=== PATIENT | male | born 1975 | race Caucasian/White ===

== ENCOUNTER → 2017-07-29 10:00 | Outpatient (POV) | payer BC, SELFPAY ==
[2017-07-29 10:36] VITALS: BP 148/84; PULSE 95; RESP 18; TEMP 37.3; O2SAT 99; BMI 28.0
--- NOTE | 2017-07-29 10:58 | P.CONS_ITS ---
[facility] Pain Management SOAP Note Subjective:: This patient is a pleasant 41-year-old white male who we are treating for low back pain with lumbar spondylosis. He has previously had medial branch blocks and received 80% relief from these previous medial branch blocks. This was done several months ago. His pain is now returned. We are seeking approval for repeat medial branch blocks on the left side at L3-L4, L4-L5 and L5-S1. These were denied by his insurance wrongly saying that he only got 75% relief. Patient did get 80% relief so we are appealing this decision. Objective:: Alert and oriented ?3 in no acute distress. Increased pain with extension. Tenderness over lower lumbar spine on the left side. Motor strength of the lower extremities is 5/5. There is no gross sensory deficit. 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 His pain is returned only on the left side. We will seek approval for left-sided facet joint injection/medial branch blocks at L3-L4, L4-5 and L5-S1.
== END ==
PROVIDERS: Family Provider Emergency Medicine; PCP Emergency Medicine; Visit Provider Anesthesiology
DX: M51.16 Intervertebral disc disorders with radiculopathy, lumbar region (principal)
CPT/HCPCS: 99212

== ENCOUNTER 2017-09-13 09:36 | Day surgery (SDC) | payer BC, SELFPAY ==
[2017-09-13 10:12] VITALS: BP 135/75; PULSE 82; RESP 18; TEMP 36.6; O2SAT 99; BMI 28.0
[2017-09-13 11:16] VITALS: BP 135/75; PULSE 77; RESP 20
[2017-09-13 11:18] VITALS: BP 126/95; PULSE 85; RESP 18
--- NOTE | 2017-09-13 11:20 | P.PCN_ITS ---
- Procedure Date: 09/13/17 Time: 11:15 Anesthesiologist:: Donald Rios MD Complications:: None Pre-procedure Diagnosis:: Degenerative disc disease of lumbar spine multiple levels with lumbar spondylosis Post-procedure Diagnosis:: Same Indications for Procedure:: This patient is a pleasant 41-year-old white male who we are treating for low back pain with lumbar spondylosis. He previously had medial branch blocks with 80% relief. His pain is starting to come back. We will do repeat left sided medial branch blocks of L3-L4, L4-5 and L5-S1. Procedure Details:: Lumbar medial branch block Informed consent was obtained and the risks and benefits of the procedure was explained to the patient. The back was prepped using ChloraPrep. The skin and subcutaneous tissues were anesthetized using lidocaine. I placed 22-gauge spinal needles into the facet joint/medial branches of L3-L4, L4-L5 and L5-S1 on the left side. Needle placement was confirmed with dye. After this we injected 3 mL bupivacaine 0.25% and Depo-Medrol 13 mg into each facet joint/ medial branch of L3-L4, L5 and L5-S1 on the left side. We used a total of 40 mg Depo-Medrol for all 3 levels bilaterally. The patient tolerated the procedure well with no complications. Plan and Disposition:: We will follow-up with this patient in 2 weeks. We will reevaluate his symptoms at that time.
[2017-09-13 11:23] VITALS: BP 113/77; PULSE 76; RESP 18; TEMP 36.4; O2SAT 99
== END 2017-09-13 11:25 | disposition home or self-care (01) ==
LOC: SC.PAINP 09:38
PROVIDERS: Family Provider Emergency Medicine; PCP Emergency Medicine; Visit Provider Anesthesiology
DX: M51.36 Other intervertebral disc degeneration, lumbar region (principal); M47.896 Other spondylosis, lumbar region
CPT/HCPCS: 64493; 64494; 64495; J1030; Q9966

== ENCOUNTER → 2017-09-30 09:37 | Outpatient (POV) | payer BC, SELFPAY ==
[2017-09-30 09:54] VITALS: BP 141/68; PULSE 100; RESP 20; TEMP 37.1; O2SAT 100; BMI 28.0
--- NOTE | 2017-09-30 10:25 | HMH.PAINSOAP ---
[facility] Pain Management SOAP Note Subjective:: Patient is a pleasant 42-year-old white male who presents today after his most recent medial branch block on the left side L3-L4 L4-L5 L5-S1. Patient rates his pain is 2 out of 10 today. Patient states he is doing well however he has a interesting new pain. Patient has tenderness over left SI joint. Patient states he does have some radiation from the SI joint into the back of the leg. Patient is having locking sensation at times. Patient recently fell and hit his head. Patient did not go to the ER after this. Patient states he is doing all right at this time. Patient is taking Tylenol to help with his pain. Patient has done well with injective therapy. ROS General: no recent weight change, no fever, no sleep disturbances Respiratory: no cough, no shortness of air, no recurring pulmonary infections Cardiovascular/Peripheral Vascular: No chest pain, No palpitations, no edema, no shortness of breath. Gastrointestinal: no incontinence, normal bowel movements reported Genitourinary: no incontinence Musculoskeletal: Back pain, left SI joint pain Psychiatric: normal mood/ affect, Neurological: [denies weakness in extremities], [denies balance issues] Objective:: Physical Exam General: Alert and oriented x3, no acute distress, pleasant and cooperative, [on room air] Lungs: Resps E/U, Symmetrical chest expansion, Eyes: PERRL Musculoskeletal: Flexion and extension of lumbar spine somewhat guarded secondary to pain, deep tendon reflexes normal, strength in upper and lower extremities [5/5], slightly antalgic gait noted, positive Mary Beth's test on the left side Neurological: speech clear, certified medical technician assistant equal, no gross sensory deficits Assessment:: Sacroiliitis, degenerative disc disease of the lumbar spine with lumbar spondylosis Plan:: We will order a left SI joint injection for the patient. Patient has done well with injective therapies in the past and I believe that this will be beneficial. Patient is participating in a home stretching regimen. Patient is also taking anti-inflammatories and Tylenol to help ease the pain. I will follow-up with this patient and his SI joint injection. This note was dictated using voice recognition software and may contain errors or omissions
--- NOTE | 2017-09-30 10:28 | P.CONS_ITS ---
[facility] Pain Management SOAP Note Subjective:: Patient is a pleasant 42-year-old white male who presents today after his most recent medial branch block on the left side L3-L4 L4-L5 L5-S1. Patient rates his pain is 2 out of 10 today. Patient states he is doing well however he has a interesting new pain. Patient has tenderness over left SI joint. Patient states he does have some radiation from the SI joint into the back of the leg. Patient is having locking sensation at times. Patient recently fell and hit his head. Patient did not go to the ER after this. Patient states he is doing all right at this time. Patient is taking Tylenol to help with his pain. Patient has done well with injective therapy. ROS General: no recent weight change, no fever, no sleep disturbances Respiratory: no cough, no shortness of air, no recurring pulmonary infections Cardiovascular/Peripheral Vascular: No chest pain, No palpitations, no edema, no shortness of breath. Gastrointestinal: no incontinence, normal bowel movements reported Genitourinary: no incontinence Musculoskeletal: Back pain, left SI joint pain Psychiatric: normal mood/ affect, Neurological: [denies weakness in extremities], [denies balance issues] Objective:: Physical Exam General: Alert and oriented x3, no acute distress, pleasant and cooperative, [ on room air] Lungs: Resps E/U, Symmetrical chest expansion, Eyes: PERRL Musculoskeletal: Flexion and extension of lumbar spine somewhat guarded secondary to pain, deep tendon reflexes normal, strength in upper and lower extremities [5/5], slightly antalgic gait noted, positive Mary Beth's test on the left side Neurological: speech clear, hospital fellow equal, no gross sensory deficits Assessment:: Sacroiliitis, degenerative disc disease of the lumbar spine with lumbar spondylosis Plan:: We will order a left SI joint injection for the patient. Patient has done well with injective therapies in the past and I believe that this will be beneficial. Patient is participating in a home stretching regimen. Patient is also taking anti-inflammatories and Tylenol to help ease the pain. I will follow-up with this patient and his SI joint injection. This note was dictated using voice recognition software and may contain errors or omissions
== END ==
PROVIDERS: Family Provider Emergency Medicine; PCP Emergency Medicine; Visit Provider Clinical Nurse Specialist Family Health
DX: M46.1 Sacroiliitis, not elsewhere classified (principal)
CPT/HCPCS: 99212

== ENCOUNTER → 2017-10-11 08:39 | Outpatient (CLI) | payer BC, SELFPAY ==
--- NOTE | 2017-10-11 08:42 | XR_ITS ---
XR elbow LT min 3V COMPARISON: None HISTORY: Left elbow pain TECHNIQUE: AP lateral and oblique views FINDINGS: There is no fracture or dislocation. Soft tissues are normal and is no abnormal fat pad sign. IMPRESSION: Negative left elbow
== END ==
PROVIDERS: PCP Emergency Medicine; Visit Provider Emergency Medicine
DX: M25.522 Pain in left elbow (principal)
CPT/HCPCS: 73080

== ENCOUNTER → 2017-10-28 10:09 | Outpatient (POV) | payer BC, SELFPAY ==
[2017-10-28 10:23] VITALS: BP 141/81; PULSE 80; RESP 20; TEMP 36.7; BMI 28.8
--- NOTE | 2017-10-28 10:33 | HMH.PAINSOAP ---
[facility] Pain Management SOAP Note Subjective:: Patient is a pleasant 42-year-old white male who presents today for follow-up after insurance denial for left SI joint injection. Patient has done well with injective therapies in the past. Patient medial branch blocks helped significantly. Patient rates his his pain in his back at 2 out of 10 however he does have extreme point tenderness over his left SI joint. Patient rates his pain a 6 out of 10 today. Patient is doing all right at this time. We will send him for an x-ray of his SI joints due to the fact that the patient insurance requires this. ROS General: no recent weight change, no fever, no sleep disturbances Respiratory: no cough, no shortness of air, no recurring pulmonary infections Cardiovascular/Peripheral Vascular: No chest pain, No palpitations, no edema, no shortness of breath. Gastrointestinal: no incontinence, normal bowel movements reported Genitourinary: no incontinence Musculoskeletal: Back pain, left SI joint pain Psychiatric: normal mood/ affect Neurological: [denies weakness in extremities], [denies balance issues] Objective:: Physical Exam General: Alert and oriented x3, no acute distress, pleasant and cooperative, [on room air] Lungs: Resps E/U, Symmetrical chest expansion, Eyes: PERRL Musculoskeletal: Flexion and extension of lumbar spine somewhat guarded secondary to pain, deep tendon reflexes normal, strength in upper and lower extremities [5/5], lightly antalgic gait noted, positive Mary Beth's test on the left side, extreme point tenderness over left SI joint Neurological: speech clear, pediatric rn equal, no gross sensory deficits Assessment:: Regular ileitis, degenerative disc disease of the lumbar spine with lumbar spondylosis Plan:: We will order a SI joint x-ray bilaterally. We will do the results and determine our next plan of care after this. I believe an SI joint injection would be beneficial to the patient given his symptomology. Patient is also taking anti-inflammatories. We will submit for left SI joint injection after x-rays been reviewed. This note was dictated using voice recognition software and may contain errors or omissions
--- NOTE | 2017-10-28 10:36 | P.CONS_ITS ---
[facility] Pain Management SOAP Note Subjective:: Patient is a pleasant 42-year-old white male who presents today for follow-up after insurance denial for left SI joint injection. Patient has done well with injective therapies in the past. Patient medial branch blocks helped significantly. Patient rates his his pain in his back at 2 out of 10 however he does have extreme point tenderness over his left SI joint. Patient rates his pain a 6 out of 10 today. Patient is doing all right at this time. We will send him for an x-ray of his SI joints due to the fact that the patient insurance requires this. ROS General: no recent weight change, no fever, no sleep disturbances Respiratory: no cough, no shortness of air, no recurring pulmonary infections Cardiovascular/Peripheral Vascular: No chest pain, No palpitations, no edema, no shortness of breath. Gastrointestinal: no incontinence, normal bowel movements reported Genitourinary: no incontinence Musculoskeletal: Back pain, left SI joint pain Psychiatric: normal mood/ affect Neurological: [denies weakness in extremities], [denies balance issues] Objective:: Physical Exam General: Alert and oriented x3, no acute distress, pleasant and cooperative, [ on room air] Lungs: Resps E/U, Symmetrical chest expansion, Eyes: PERRL Musculoskeletal: Flexion and extension of lumbar spine somewhat guarded secondary to pain, deep tendon reflexes normal, strength in upper and lower extremities [5/5], lightly antalgic gait noted, positive Mary Beth's test on the left side, extreme point tenderness over left SI joint Neurological: speech clear, hand bunch maker equal, no gross sensory deficits Assessment:: Regular ileitis, degenerative disc disease of the lumbar spine with lumbar spondylosis Plan:: We will order a SI joint x-ray bilaterally. We will do the results and determine our next plan of care after this. I believe an SI joint injection would be beneficial to the patient given his symptomology. Patient is also taking anti-inflammatories. We will submit for left SI joint injection after x- rays been reviewed. This note was dictated using voice recognition software and may contain errors or omissions
--- NOTE | 2017-10-28 10:44 | XR_ITS ---
XR sacroiliac joint BI min 3V CLINICAL INDICATION: Sacroiliac pain greater on the left ITS.REASON: SI PAIN ORDERING PHYSICIAN: Huma Holm PATIENT AGE: 42 years FINDINGS: No evidence of SI fusion or lytic change. There is some minimal sclerosis along the left SI joint superiorly. No significant hypertrophic changes evident. IMPRESSION: Minimal sclerosis of left SI joint superiorly otherwise negative SI joints
== END ==
PROVIDERS: Family Provider Emergency Medicine; PCP Emergency Medicine; Visit Provider Clinical Nurse Specialist Family Health
DX: M47.816 Spondylosis without myelopathy or radiculopathy, lumbar region (principal)
CPT/HCPCS: 72202; 99212

== ENCOUNTER → 2018-01-20 12:34 | Outpatient (CLI) | payer BC, SELFPAY ==
--- NOTE | 2018-01-20 12:36 | XR_ITS ---
XR foot RT min 3V HISTORY: ITS.REASON: Foot Pain ORDERING PHYSICIAN: Jarvis Forbes MD PATIENT AGE: 42 years COMPARISON: None FINDINGS: No fracture or dislocation. No lytic or blastic change. There is normal mineralization.. The joint spaces are well-preserved. No significant degenerative/arthritic changes. No erosive changes evident. IMPRESSION: Negative, no acute finding
== END ==
PROVIDERS: Visit Provider Emergency Medicine
DX: S99.921A Unspecified injury of right foot, initial encounter (principal)
CPT/HCPCS: 73630

== ENCOUNTER → 2018-01-21 12:12 | Outpatient (CLI) | payer BC, SELFPAY ==
--- NOTE | 2018-01-21 12:13 | XR_ITS ---
XR calcaneus RT min 2V COMPARISON: Right foot 01/20/2018 HISTORY: Right heel pain TECHNIQUE: Lateral and axial views FINDINGS: The calcaneus appears normal. There is a very tiny spur of the calcaneus at insertion of Achilles tendon. The talocalcaneal articulation is unremarkable. The soft tissues are normal. IMPRESSION: Negative right calcaneus
== END ==
PROVIDERS: PCP Emergency Medicine; Visit Provider Podiatrist
DX: S99.921A Unspecified injury of right foot, initial encounter (principal)
CPT/HCPCS: 73650

== ENCOUNTER → 2018-02-05 13:22 | Outpatient (CLI) | payer BC, SELFPAY ==
--- NOTE | 2018-02-05 13:24 | MR_ITS ---
MR ankle RT wo/w con HISTORY: Right ankle pain, pain in lateral right foot ITS.REASON: right heel pain ORDERING PHYSICIAN: Mel León DPM PATIENT AGE: 42 years Comparison: None TECHNIQUE: Standard multiplanar multiecho sequences are performed without and with gadolinium enhancement. FINDINGS: There is abnormal signal intensity within the cuboid joints slight decreased T1 and increased T2 signal in the mid to distal aspect of the cuboid. On the T1-weighted images there are linear areas of decreased T1 signal suspicious for nondisplaced fracture involving the mid and distal aspect of the cuboid and along the distal and plantar aspect of the cuboid. There is some minimal enhancement of the cuboid at this region as well. There is also slight diffuse increase T2 signal intensity involving the neck of the talus medially and along the distal and plantar surface of the talus. This could be related to some bone bruise or stress reaction of the talus. There is some minimal enhancement at this region well. No obvious ligamentous or tendinous tears. There is a small amount fluid along the posterior aspect of the ankle joint at the talocalcaneal region. IMPRESSION: 1. Bone bruise with nondisplaced fracture of the cuboid 2. Bone bruise versus stress reaction of the neck of the talus. 3. Small ankle joint effusion
== END ==
PROVIDERS: Family Provider Emergency Medicine; PCP Emergency Medicine; Visit Provider Podiatrist
DX: M84.374A Stress fracture, right foot, initial encounter for fracture (principal)
CPT/HCPCS: 73723; A9576

== ENCOUNTER → 2018-03-03 09:35 | Outpatient (POV) | payer BC, SELFPAY ==
[2018-03-03 09:44] VITALS: BP 115/80; PULSE 83; RESP 18; O2SAT 97; BMI 28.8
--- NOTE | 2018-03-03 09:50 | HMH.PAINSOAP ---
[facility] Pain Management SOAP Note Subjective:: Patient is a pleasant 42-year-old white male who presents today for follow-up. Patient is having extreme left SI joint pain. Patient states he was doing better for quite some time however he had to start wearing a bra on his right foot and this has aggravated everything. Patient states most of his pain is left SI joint radiating into his groin and also in his piriformis muscle. His pain a 6 out of 10. Patient is visibly uncomfortable. Patient does have x-ray of left SI joint showing sclerosis. Patient has done well with injections in the past. Patient is currently on an anti-inflammatory. Patient's tried and failed home stretching program but is continuing so. ROS General: no recent weight change, no fever, no sleep disturbances Respiratory: no cough, no shortness of air, no recurring pulmonary infections Cardiovascular/Peripheral Vascular: No chest pain, No palpitations, no edema, no shortness of breath. Gastrointestinal: no incontinence, normal bowel movements reported Genitourinary: no incontinence Musculoskeletal: Left SI joint pain, left piriformis pain Psychiatric: normal mood/ affect Neurological: [denies weakness in extremities], [denies balance issues] Objective:: Physical Exam General: Alert and oriented x3, no acute distress, pleasant and cooperative, [on room air] Lungs: Resps E/U, Symmetrical chest expansion, [CTA bilateral] Eyes: PERRL Musculoskeletal: Flexion and extension of lumbar spine somewhat guarded secondary to pain, deep tendon reflexes normal, strength in upper and lower extremities [5/5], [abnormal gait noted], left Mary Beth's test positive, extreme point tenderness over left piriformis syndrome Neurological: speech clear, return agent airport equal, no gross sensory deficits Assessment:: Sacroiliitis left, degenerative disc disease lumbar spine with lumbar spondylosis, form syndrome, myofascial pain syndrome Plan:: We will schedule left SI joint injection and a left piriformis injection for the patient. Patient does have an x-ray showing degenerative changes to the SI joint. Patient is still doing a home stretching program. Patient is also taking anti-inflammatories. I will follow-up with him after his injection. This note was dictated using voice recognition software and may contain errors or omissions
--- NOTE | 2018-03-03 09:54 | P.CONS_ITS ---
[facility] Pain Management SOAP Note Subjective:: Patient is a pleasant 42-year-old white male who presents today for follow-up. Patient is having extreme left SI joint pain. Patient states he was doing better for quite some time however he had to start wearing a bra on his right foot and this has aggravated everything. Patient states most of his pain is left SI joint radiating into his groin and also in his piriformis muscle. His pain a 6 out of 10. Patient is visibly uncomfortable. Patient does have x-ray of left SI joint showing sclerosis. Patient has done well with injections in the past. Patient is currently on an anti-inflammatory. Patient's tried and failed home stretching program but is continuing so. ROS General: no recent weight change, no fever, no sleep disturbances Respiratory: no cough, no shortness of air, no recurring pulmonary infections Cardiovascular/Peripheral Vascular: No chest pain, No palpitations, no edema, no shortness of breath. Gastrointestinal: no incontinence, normal bowel movements reported Genitourinary: no incontinence Musculoskeletal: Left SI joint pain, left piriformis pain Psychiatric: normal mood/ affect Neurological: [denies weakness in extremities], [denies balance issues] Objective:: Physical Exam General: Alert and oriented x3, no acute distress, pleasant and cooperative, [on room air] Lungs: Resps E/U, Symmetrical chest expansion, [CTA bilateral] Eyes: PERRL Musculoskeletal: Flexion and extension of lumbar spine somewhat guarded second danilo to pain, deep tendon reflexes normal, strength in upper and lower extremities [5/5], [abnormal gait noted], left Mary Beth's test positive, extreme point tenderness over left piriformis syndrome Neurological: speech clear, data processing control clerk equal, no gross sensory deficits Assessment:: Sacroiliitis left, degenerative disc disease lumbar spine with lumbar spondylosis, form syndrome, myofascial pain syndrome Plan:: We will schedule left SI joint injection and a left piriformis injection for the patient. Patient does have an x-ray showing degenerative changes to the SI joint. Patient is still doing a home stretching program. Patient is also taking anti-inflammatories. I will follow-up with him after his injection. This note was dictated using voice recognition software and may contain errors or omissions
== END ==
PROVIDERS: Family Provider Emergency Medicine; PCP Emergency Medicine; Visit Provider Clinical Nurse Specialist Family Health
DX: M46.1 Sacroiliitis, not elsewhere classified (principal); M51.36 Other intervertebral disc degeneration, lumbar region; M47.896 Other spondylosis, lumbar region; M79.1 Myalgia
CPT/HCPCS: 99213

== ENCOUNTER → 2018-04-21 11:14 | Outpatient (POV) | payer BC, SELFPAY ==
[2018-04-21 13:27] VITALS: BP 141/98; PULSE 96; RESP 18; O2SAT 98; BMI 29.5
--- NOTE | 2018-04-21 13:53 | HMH.PAINSOAP ---
[facility] Pain Management SOAP Note Subjective:: Patient is a pleasant 42-year-old white male who presents today for follow-up after his left SI joint injection and left piriformis injection. Patient states that after a week of relief he had some onset of a new pain. Had left leg weakness and left leg pain. Patient has not had a recent MRI. Patient has had back surgery in the past. Patient rates his pain today an 8 out of 10. ROS General: no recent weight change, no fever, no sleep disturbances Respiratory: no cough, no shortness of air, no recurring pulmonary infections Cardiovascular/Peripheral Vascular: No chest pain, No palpitations, no edema, no shortness of breath. Gastrointestinal: no incontinence, normal bowel movements reported Genitourinary: no incontinence Musculoskeletal: Back pain, leg pain Psychiatric: normal mood/ affect Neurological: Weakness in the left leg, [denies balance issues] Objective:: Physical Exam General: Alert and oriented x3, no acute distress, pleasant and cooperative, [on room air] Lungs: Resps E/U, Symmetrical chest expansion, Eyes: PERRL Musculoskeletal: Flexion and extension of lumbar spine somewhat guarded secondary to pain, deep tendon reflexes normal, strength in upper and lower extremities [5/5], [abnormal gait noted] Neurological: speech clear, brace maker equal, no gross sensory deficits Assessment:: Degenerative disc disease lumbar spine with lumbar postlaminectomy Plan:: New onset of symptoms I do believe that patient should be evaluated with an MRI. I will follow up with the patient after his MRI. This note was dictated using voice recognition software and may contain errors or omissions
--- NOTE | 2018-04-21 13:56 | P.CONS_ITS ---
[facility] Pain Management SOAP Note Subjective:: Patient is a pleasant 42-year-old white male who presents today for follow-up after his left SI joint injection and left piriformis injection. Patient states that after a week of relief he had some onset of a new pain. Had left leg weakness and left leg pain. Patient has not had a recent MRI. Patient has had back surgery in the past. Patient rates his pain today an 8 out of 10. ROS General: no recent weight change, no fever, no sleep disturbances Respiratory: no cough, no shortness of air, no recurring pulmonary infections Cardiovascular/Peripheral Vascular: No chest pain, No palpitations, no edema, no shortness of breath. Gastrointestinal: no incontinence, normal bowel movements reported Genitourinary: no incontinence Musculoskeletal: Back pain, leg pain Psychiatric: normal mood/ affect Neurological: Weakness in the left leg, [denies balance issues] Objective:: Physical Exam General: Alert and oriented x3, no acute distress, pleasant and cooperative, [on room air] Lungs: Resps E/U, Symmetrical chest expansion, Eyes: PERRL Musculoskeletal: Flexion and extension of lumbar spine somewhat guarded secondary to pain, deep tendon reflexes normal, strength in upper and lower extremities [5/5], [abnormal gait noted] Neurological: speech clear, senior energy consultant equal, no gross sensory deficits Assessment:: Degenerative disc disease lumbar spine with lumbar postlaminectomy Plan:: New onset of symptoms I do believe that patient should be evaluated with an MRI. I will follow up with the patient after his MRI. This note was dictated using voice recognition software and may contain errors or omissions
== END ==
PROVIDERS: Family Provider Emergency Medicine; PCP Emergency Medicine; Visit Provider Clinical Nurse Specialist Family Health
DX: M51.36 Other intervertebral disc degeneration, lumbar region (principal); M96.1 Postlaminectomy syndrome, not elsewhere classified
CPT/HCPCS: 99213

== ENCOUNTER → 2018-04-21 11:24 | Outpatient (CLI) | payer BC, SELFPAY ==
--- NOTE | 2018-04-21 11:26 | XR_ITS ---
XR foot wt bearing RT 3V HISTORY: ITS.REASON: fracture follow up ORDERING PHYSICIAN: Mel León DPM PATIENT AGE: 42 years COMPARISON: 02/05/2018 mri FINDINGS: MRI suggest that a nondisplaced fracture of the cuboid which is below limits of resolution on the radiograph. No fracture or dislocation. No callus formation or sclerotic areas evident. There is normal alignment. IMPRESSION: Negative right foot. The subtle fracture noted on MRI is below limits of resolution on the radiograph
== END ==
PROVIDERS: PCP Emergency Medicine; Visit Provider Podiatrist
DX: S92.214A Nondisplaced fracture of cuboid bone of right foot, initial encounter for closed fracture (principal); S93.491A Sprain of other ligament of right ankle, initial encounter; T14.8XXA Other injury of unspecified body region, initial encounter
CPT/HCPCS: 73630

== ENCOUNTER → 2018-05-07 14:05 | Outpatient (CLI) | payer BC, SELFPAY ==
--- NOTE | 2018-05-07 14:08 | MR_ITS ---
MR lumbar spine wo con, MR 3-d myelogram/MRCP HISTORY: LT sided LBP with LT leg pain and numbness. X 1month. No trauma. HX back surgery X15yrs ago. ITS.REASON: WORSENING BACK PAIN ORDERING PHYSICIAN: Huma Holm PATIENT AGE: 42 years Comparison: MRI 06-04-16 TECHNIQUE: Standard multiplanar multiecho sequences are performed without contrast. 3-D MIP and myelographic images are also rendered and reviewed FINDINGS: There is normal alignment. The spinal cord ends at the L1 level. T11-12: Mild degenerative disc disease with minimal broad-based right paracentral disc protrusion with small annular fissure unchanged and minimal right lateral recess narrowing. T12-L1, and L1-L2 have an unremarkable appearance. L2-L3: Mild facet hypertrophic changes. L3-L4: Mild facet hypertrophy. L4-5: Degenerative disc disease with bulging disc with type II endplate changes. There is mild facet and ligamentum flavum hypertrophy with mild bilateral foraminal narrowing not significant changed. L5-S1: Degenerative disc disease with bulging disc eccentric toward the left abutting the left S1 nerve root. Facet ligamentum flavum hypertrophy with moderate left-sided foraminal narrowing with type II endplate changes. There may be a small laminotomy defect on the left this level as previously described. No disc herniation or canal stenosis with no significant change from the previous exam. IMPRESSION: 1. Degenerative disc disease L4-L5 and L5-S1 with type II endplate changes along with facet and ligamentum hypertrophy and mild bulging disc. The disc is eccentric toward the left at L5-S1 abutting the left S1 nerve root with moderate left-sided foraminal narrowing at L5-S1 and mild bilateral foraminal narrowing at L4-L5. Overall not significantly changed 2. No disc herniation or canal stenosis
== END ==
PROVIDERS: PCP Emergency Medicine; Visit Provider Clinical Nurse Specialist Family Health
DX: M54.5 Low back pain (principal)
CPT/HCPCS: 72148; 76376

== ENCOUNTER → 2018-05-12 15:23 | Outpatient (POV) | payer BC, SELFPAY ==
[2018-05-12 15:38] VITALS: BP 145/85; PULSE 94; RESP 18; O2SAT 98; BMI 28.0
--- NOTE | 2018-05-13 07:48 | HMH.PAINSOAP ---
[facility] Pain Management SOAP Note Subjective:: Patient is a pleasant 42-year-old white male who presents today for follow-up. Patient has recent MRI showing degenerative disc disease along with bulging disc abutting the left S1 nerve root. Patient is having quite a bit of low back pain and left leg pain. Patient was determined not a surgical candidate. Patient rates his pain 8 out of 10 today. Patient has tried injections in the past with no success. Patient's tried and failed anti-inflammatories for over 6 months. Patient is continuing a home stretching regimen. ROS General: no recent weight change, no fever, no sleep disturbances Respiratory: no cough, no shortness of air, no recurring pulmonary infections Cardiovascular/Peripheral Vascular: No chest pain, No palpitations, no edema, no shortness of breath. Gastrointestinal: no incontinence, normal bowel movements reported Genitourinary: no incontinence Musculoskeletal: Back pain, leg pain Psychiatric: normal mood/ affect Neurological: [denies weakness in extremities], [denies balance issues] Objective:: Physical Exam General: Alert and oriented x3, no acute distress, pleasant and cooperative, [on room air] Lungs: Resps E/U, Symmetrical chest expansion, Eyes: PERRL Musculoskeletal: Flexion and extension of lumbar spine somewhat guarded secondary to pain, deep tendon reflexes normal, strength in upper and lower extremities [5/5], slightly antalgic gait noted, positive straight leg raise test on the left side at 30 degrees Neurological: speech clear, wood heel back liner equal, no gross sensory deficits Assessment:: degenerative disc disease lumbar spine with lumbar radiculopathy Plan:: We will schedule a neurostimulator trial for the patient. I believe he would be a good candidate given the amount of conservative therapies he has failed. I will follow-up with the patient after his trial. Patient will go for psychological evaluation prior to his trial. This note was dictated using voice recognition software and may contain errors or omissions
== END ==
PROVIDERS: PCP Emergency Medicine; Visit Provider Clinical Nurse Specialist Family Health
DX: M51.16 Intervertebral disc disorders with radiculopathy, lumbar region (principal)
CPT/HCPCS: 99213

== ENCOUNTER → 2018-05-27 09:14 | Outpatient (POV) | payer BC, SELFPAY ==
[2018-05-27 09:22] VITALS: BP 138/83; PULSE 87; RESP 18; O2SAT 98; BMI 28.0
--- NOTE | 2018-05-27 09:27 | HMH.PAINSOAP ---
[facility] Pain Management SOAP Note Subjective:: Is a pleasant 42-year-old white male who is today for follow-up. Patient has MRI showing degenerative disc disease along with spondylosis. Patient has done well with medial branch blocks in the past. Patient and I talked about a neurostimulator however he would like to wait on this. He rates his pain 8 out of 10 today. Patient is interested in pursuing a risotto me. Patient has had 2 rounds of medial branch blocks where he got 80% relief for over 3 weeks. Patient is continuing a home stretching regimen and is on no anticoagulation therapy. Patient is tried and failed anti-inflammatories for over 6 months. ROS General: no recent weight change, no fever, no sleep disturbances Respiratory: no cough, no shortness of air, no recurring pulmonary infections Cardiovascular/Peripheral Vascular: No chest pain, No palpitations, no edema, no shortness of breath. Gastrointestinal: no incontinence, normal bowel movements reported Genitourinary: no incontinence Musculoskeletal: Back pain Psychiatric: normal mood/ affect Neurological: [denies weakness in extremities], [denies balance issues] Objective:: Physical Exam General: Alert and oriented x3, no acute distress, pleasant and cooperative, [on room air] Lungs: Resps E/U, Symmetrical chest expansion, Eyes: PERRL Musculoskeletal: Flexion and extension of lumbar spine somewhat guarded secondary to pain, deep tendon reflexes normal, strength in upper and lower extremities [5/5], slightly antalgic gait noted, positive facet loading lumbar spine bilaterally and positive Kemps test bilateral lumbar spine Neurological: speech clear, packager hand equal, no gross sensory deficits Assessment:: Degenerative disc disease of the lumbar spine with lumbar spondylosis and facet arthropathy Plan:: We will schedule an RFA of the L3-L4 L4-L5 L5-S1 levels. We will start with the left side and in 2 weeks do that side. I will follow-up with him after his rhizotomy. This note was dictated using voice recognition software and may contain errors or omissions
--- NOTE | 2018-05-27 09:30 | P.CONS_ITS ---
[facility] Pain Management SOAP Note Subjective:: Is a pleasant 42-year-old white male who is today for follow-up. Patient has MRI showing degenerative disc disease along with spondylosis. Patient has done well with medial branch blocks in the past. Patient and I talked about a neurostimulator however he would like to wait on this. He rates his pain 8 out of 10 today. Patient is interested in pursuing a risotto me. Patient has had 2 rounds of medial branch blocks where he got 80% relief for over 3 weeks. Patient is continuing a home stretching regimen and is on no anticoagulation therapy. Patient is tried and failed anti-inflammatories for over 6 months. ROS General: no recent weight change, no fever, no sleep disturbances Respiratory: no cough, no shortness of air, no recurring pulmonary infections Cardiovascular/Peripheral Vascular: No chest pain, No palpitations, no edema, no shortness of breath. Gastrointestinal: no incontinence, normal bowel movements reported Genitourinary: no incontinence Musculoskeletal: Back pain Psychiatric: normal mood/ affect Neurological: [denies weakness in extremities], [denies balance issues] Objective:: Physical Exam General: Alert and oriented x3, no acute distress, pleasant and cooperative, [on room air] Lungs: Resps E/U, Symmetrical chest expansion, Eyes: PERRL Musculoskeletal: Flexion and extension of lumbar spine somewhat guarded secondary to pain, deep tendon reflexes normal, strength in upper and lower extremities [5/5], slightly antalgic gait noted, positive facet loading lumbar spine bilaterally and positive Kemps test bilateral lumbar spine Neurological: speech clear, finish cleaner equal, no gross sensory deficits Assessment:: Degenerative disc disease of the lumbar spine with lumbar spondylosis and facet arthropathy Plan:: We will schedule an RFA of the L3-L4 L4-L5 L5-S1 levels. We will start with the left side and in 2 weeks do that side. I will follow-up with him after his rhizotomy. This note was dictated using voice recognition software and may contain errors or omissions
== END ==
PROVIDERS: PCP Emergency Medicine; Visit Provider Clinical Nurse Specialist Family Health
DX: M51.36 Other intervertebral disc degeneration, lumbar region (principal); M47.896 Other spondylosis, lumbar region; M54.06 Panniculitis affecting regions of neck and back, lumbar region
CPT/HCPCS: 99213

== ENCOUNTER → 2018-08-11 10:57 | Outpatient (POV) | payer BC, SELFPAY ==
[2018-08-11 11:27] VITALS: BP 120/75; PULSE 80; RESP 18; O2SAT 98; BMI 28.0
--- NOTE | 2018-08-11 12:19 | HMH.PAINSOAP ---
[facility] Pain Management SOAP Note Subjective:: Patient is a pleasant 43-year-old white male who presents today after lumbar medial branch block. Patient is doing extremely well and states he has no pain today. He would like to follow-up on an as-needed basis. ROS General: no recent weight change, no fever, no sleep disturbances Respiratory: no cough, no shortness of air, no recurring pulmonary infections Cardiovascular/Peripheral Vascular: No chest pain, No palpitations, no edema, no shortness of breath. Gastrointestinal: no incontinence, normal bowel movements reported Genitourinary: no incontinence Musculoskeletal: Back pain at times Psychiatric: normal mood/ affect Neurological: [denies weakness in extremities], [denies balance issues] Objective:: Physical Exam General: Alert and oriented x3, no acute distress, pleasant and cooperative, [on room air] Lungs: Resps E/U, Symmetrical chest expansion, Eyes: PERRL Musculoskeletal: Flexion and extension of lumbar spine somewhat guarded secondary to pain, deep tendon reflexes normal, strength in upper and lower extremities [5/5], slightly antalgic gait noted Neurological: speech clear, airport skilled maintenance supervisor equal, no gross sensory deficits Assessment:: Degenerative disc disease lumbar spine lumbar facet arthropathy and lumbar spondylosis Plan:: We will see this patient on an as-needed basis. Patient is good to call our office if he has any issues. Dr. Rios has reviewed this note and agrees with this plan of care. This note was dictated using voice recognition software and may contain errors or omissions
== END ==
PROVIDERS: PCP Emergency Medicine; Visit Provider Clinical Nurse Specialist Family Health
DX: M51.36 Other intervertebral disc degeneration, lumbar region (principal); M54.06 Panniculitis affecting regions of neck and back, lumbar region; M47.896 Other spondylosis, lumbar region
CPT/HCPCS: 99213

== ENCOUNTER → 2019-08-19 16:24 | Outpatient (CLI) | payer BC, SELFPAY ==
--- NOTE | 2019-08-19 16:32 | XR_ITS ---
PROCEDURE: XR CHEST 2V CLINICAL HISTORY: shortness of breath Shortness of breath, cough, smoker COMPARISON: No exams were available for comparison FINDINGS: The cardiomediastinal silhouette and pulmonary vascularity are within normal limits. The lungs are clear without infiltrates, suspicious nodules, or pleural effusions. There is a calcified granuloma in the right lower lobe. The remaining lungs are clear. No acute bony finding. IMPRESSION: No acute findings. Dictated by: Pavan Velasquez MD 08/19/2019 17:04 Electronically signed by Pavan Velasquez MD in [place] 08/19/2019 17:04
== END ==
PROVIDERS: PCP Emergency Medicine; Visit Provider Emergency Medicine
DX: R06.02 Shortness of breath (principal)
CPT/HCPCS: 71046

== ENCOUNTER → 2019-08-27 09:46 | Outpatient (CLI) | payer BC, SELFPAY | PROVIDERS: PCP Emergency Medicine; Visit Provider Emergency Medicine | DX: R06.02 Shortness of breath (principal); R05 Cough; Z72.0 Tobacco use | CPT/HCPCS: 94060; 94618; 94726; 94729 ==

== ENCOUNTER → 2019-10-15 07:59 | Outpatient (CLI) | payer BC, SELFPAY ==
--- NOTE | 2019-10-15 07:59 | CT_ITS ---
PROCEDURE: CT CHEST WO CON CLINICAL INDICATION: coughing up blood Hemoptysis, smoker COMPARISON: XR CHEST 2V from 08/19/2019 TECHNIQUE: Axial images obtained with sagittal and coronal reformats. All CT scans at the facility use one or more dose reduction, viz: automated exposure control, ma/kV adjustment per patient size (including targeted exams where dose is matched to indication, i.e. head), or iterative reconstruction technique. FINDINGS: HEART AND MEDIASTINAL STRUCTURES: There are few scattered small mediastinal lymph nodes. No dominant adenopathy or mass evident. Normal heart size. Small amount air is present in the distal aspect of the esophagus nonspecific but could be seen with reflux. LUNGS AND PLEURAL SPACES: Calcified granuloma with some adjacent scarring in the right lower lobe. Mild COPD. Minimal scarring left apex. On axial image number 38 series 3 there is a 4 mm nodular opacity along the lateral aspect of the bifurcation of the left upper lobe bronchus. While this could be due to partial volume averaging artifact from the adjacent structures, 1 cannot exclude a small endobronchial lesion in this patient with hemoptysis. BONY STRUCTURES: Mild degenerative changes thoracic spine UPPER ABDOMEN: Unremarkable. ADDITIONAL FINDINGS: No other significant abnormalities. IMPRESSION: Possible small 4 mm endobronchial lesion at the bifurcation of the left upper lobe bronchus. This could be due to partial volume averaging artifact. An endobronchial lesion is also consideration in this patient with hemoptysis. High-resolution imaging with thin sections without and with contrast may provide further evaluation. Bronchoscopy also may be of further value. Dictated by: Pavan Velasquez MD 10/16/2019 07:02 Electronically signed by Pavan Velasquez MD in [place] 10/16/2019 07:02
== END ==
PROVIDERS: PCP Emergency Medicine; Visit Provider Emergency Medicine
DX: R04.2 Hemoptysis (principal); Z72.0 Tobacco use
CPT/HCPCS: 71250

== ENCOUNTER → 2019-11-03 12:40 | Outpatient (CLI) | payer BC, SELFPAY ==
--- NOTE | 2019-11-03 12:40 | CT_ITS ---
PROCEDURE: CT CHEST WO/W CON CLINCAL INDICATION: Coughing of blood, hemoptysis, smoker, abnormal unenhanced chest CT with possible endobronchial lesion at the bifurcation of the left upper lobe bronchus COMPARISON: CT CHEST WO CON from 10/15/2019 CT CHEST WO CON from 11/03/2019 TECHNIQUE: IV Contrast: 75ml Optiray 350 Axial images obtained with sagittal and coronal reformats. All CT scans at the facility use one or more dose reduction, viz: automated exposure control, ma/kV adjustment per patient size (including targeted exams where dose is matched to indication, i.e. head), or iterative reconstruction technique. Helical images are obtained without and with contrast. High-resolution images also obtained without contrast. Thin section images are also reviewed. FINDINGS: HEART AND MEDIASTINAL STRUCTURES: No mediastinal or hilar mass or adenopathy. Previously there was a question of a small endobronchial lesion within the proximal aspect of the left upper lobe bronchus. This is not demonstrated on today's exam and could have represented some adherent mucus or partial volume averaging artifact. LUNGS AND PLEURAL SPACES: Mild COPD. Old granulomatous disease. This thin section images do demonstrate a 5 mm nodule in the left apex laterally. This is nonspecific. No additional nodular lesions are evident aside from a calcified granuloma in the right lower lobe. High-resolution images are obtained showing no evidence of interstitial lung disease. There is some mild bronchial thickening and hyperinflation consistent with COPD. BONY STRUCTURES: Degenerative changes thoracic spine UPPER ABDOMEN: Unremarkable. ADDITIONAL FINDINGS: No other significant abnormalities. IMPRESSION: 1. Questionable endobronchial nodule in the left upper lobe is not redemonstrated on today's exam and may have been due to some adherent mucous 2. 5 mm noncalcified nodule left apex. Recommend six-month follow-up. 3. COPD with old granulomatous disease Dictated by: Pavan Velasquez MD 11/05/2019 09:59 Electronically signed by Pavan Velasquez MD in [place] 11/05/2019 10:00
--- NOTE | 2019-11-03 13:40 | CT_ITS ---
PROCEDURE: CT CHEST WO CON CLINCAL INDICATION: Coughing of blood, hemoptysis, smoker, abnormal unenhanced chest CT with possible endobronchial lesion at the bifurcation of the left upper lobe bronchus COMPARISON: CT CHEST WO CON from 10/15/2019 CT CHEST WO CON from 11/03/2019 TECHNIQUE: IV Contrast: 75ml Optiray 350 Axial images obtained with sagittal and coronal reformats. All CT scans at the facility use one or more dose reduction, viz: automated exposure control, ma/kV adjustment per patient size (including targeted exams where dose is matched to indication, i.e. head), or iterative reconstruction technique. Helical images are obtained without and with contrast. High-resolution images also obtained without contrast. Thin section images are also reviewed. FINDINGS: HEART AND MEDIASTINAL STRUCTURES: No mediastinal or hilar mass or adenopathy. Previously there was a question of a small endobronchial lesion within the proximal aspect of the left upper lobe bronchus. This is not demonstrated on today's exam and could have represented some adherent mucus or partial volume averaging artifact. LUNGS AND PLEURAL SPACES: Mild COPD. Old granulomatous disease. This thin section images do demonstrate a 5 mm nodule in the left apex laterally. This is nonspecific. No additional nodular lesions are evident aside from a calcified granuloma in the right lower lobe. High-resolution images are obtained showing no evidence of interstitial lung disease. There is some mild bronchial thickening and hyperinflation consistent with COPD. BONY STRUCTURES: Degenerative changes thoracic spine UPPER ABDOMEN: Unremarkable. ADDITIONAL FINDINGS: No other significant abnormalities. IMPRESSION: 1. Questionable endobronchial nodule in the left upper lobe is not redemonstrated on today's exam and may have been due to some adherent mucous 2. 5 mm noncalcified nodule left apex. Recommend six-month follow-up. 3. COPD with old granulomatous disease Dictated by: Pavan Velasquez MD 11/03/2019 15:57 Electronically signed by Pavan Velasquez MD in [place] 11/05/2019 10:03
== END ==
PROVIDERS: PCP Emergency Medicine; Visit Provider Emergency Medicine
DX: R93.89 Abnormal findings on diagnostic imaging of other specified body structures (principal)
CPT/HCPCS: 71250; 71270; Q9967

== ENCOUNTER → 2022-10-10 23:32 | Outpatient (CLI) | payer BC, SELFPAY ==
[2022-10-10 18:11] LABS: Basophils # 0.1 K/mm3 (0-0.2); Basophils % 0.8 % (0.1-2.0); Eosinophils # 0.3 K/mm3 (0.0-0.4); Eosinophils % 3.8 % (0.1-12.0); Hematocrit 46.2 % (42.0-52.0); Hemoglobin 14.8 g/dL (14.1-18.0); Lymphocytes # 2.1 K/mm3 (0.7-4.5); Lymphocytes % 27.2 % (10-50); Mean Corpuscular Hemoglobin 29.2 pg (27.0-31.2); Mean Platelet Volume 11.6 fl (7.4-10.4); Monocytes # 0.5 K/mm3 (0.1-1.0); Monocytes % 6.4 % (1.7-9.3); Neutrophils # 4.8 K/mm3 (1.8-7.8); Neutrophils % 61.8 % (37.0-80.0); Platelet Count 285 K/mm3 (142-424); Red Blood Count 5.08 M/mm3 (4.60-6.20); Red Cell Distribution Width 12.8 % (11.5-17.5); White Blood Count 7.8 K/mm3 (4.8-10.8)
[2022-10-10 18:54] LABS: Alanine Aminotransferase 42 U/L (12-78); Albumin/Globulin Ratio 1.8 (1.1-1.8); Alkaline Phosphatase 92 U/L (38-126); Anion Gap 15.6 mEq/L (5-15); Aspartate Amino Transferase 36 U/L (17-59); Blood Urea Nitrogen 17 mg/dl (9-20); Calcium 9.3 mg/dl (8.4-10.2); Carbon Dioxide 21 mmol/L (22.0-30.0); Chloride 105 mmol/L (98-107); Chol/HDL Ratio 4.3 (1-3.5); Cholesterol 208 mg/dl (140-200); Estimated Glomerular Filt Rate 104 ml/min (>60); GFR (African American) 126 ML/MIN (>60); Globulin 2.8 g/dL (1.3-3.2); Glucose 113 mg/dl (74-100); HDL Cholesterol 48 mg/dl (40-60); Potassium 4.6 mmoL/L (3.5-5.1); Sodium 137 mmol/L (136-145); Total Protein,Serum 7.8 g/dl (6.3-8.2); Triglycerides 145 mg/dl (30-150); VLDL Cholesterol 29 mg/dL (0-40)
[2022-10-10 19:05] LABS: Direct LDL Cholesterol 127.26 mg/dL (100-129)
[2022-10-10 19:10] LABS: Free T4 (Free Thyroxine) 1.41 ng/dl (0.78-2.19)
[2022-10-10 19:28] LABS: Thyroid Stimulating Hormone 1.86 uIU/mL (0.465-4.68)
== END ==
PROVIDERS: PCP Emergency Medicine; Visit Provider Emergency Medicine
DX: R53.83 Other fatigue (principal); R30.0 Dysuria; R39.198 Other difficulties with micturition; E55.9 Vitamin D deficiency, unspecified
CPT/HCPCS: 80053; 80061; 82306; 84439; 84443; 85025; 87086; 87522

== ENCOUNTER → 2022-10-26 13:42 | Outpatient (CLI) | payer BC, SELFPAY | PROVIDERS: PCP Nurse Practitioner Family; Visit Provider Nurse Practitioner Family | DX: N39.0 Urinary tract infection, site not specified (principal) | CPT/HCPCS: 87086 ==